=== PATIENT | male | born 1955 | race Caucasian/White ===

== ENCOUNTER 2017-08-05 09:33 | Outpatient (CLI) | payer OTHER ==
[2017-08-05 10:36] LABS: eGFR (African) > 60; eGFR (Non-African) > 60
== END 2017-08-05 09:34 ==
LOC: LAB 09:33
PROVIDERS: ATTEND Family Medicine
DX: Z00.00 Encounter for general adult medical examination without abnormal findings (principal); Z13.6 Encounter for screening for cardiovascular disorders; E03.9 Hypothyroidism, unspecified
CPT/HCPCS: 36415; 80053; 80061; 84443

== ENCOUNTER 2017-08-18 08:04 | Day surgery (SDC) | payer OTHER ==
[~2017-08-18 08:04] MED LIST: LACTATED RINGERS 1,000 ML IV.SOLN IV ONE; LIDOCAINE HCL/PF 2% 100 MG/5 ML VIAL IJ ONE; PROPOFOL 200 MG/20 ML VIAL IV ONE; SALINE FLUSH 10 ML DISP.SYRIN IVF ONE
--- NOTE | 2017-08-19 16:10 | GI Report ---
REFERRING PHYSICIAN: NATALIE Ambrose ENGINE REPAIRER PRODUCTION: Morales Garcia MD PROCEDURE MEDICATION: Propofol as per anesthesia. INDICATIONS: Patient is referred for a colonoscopy. It has been 10 years since screening. Denies changes in bowel habits. PROCEDURE PERFORMED: Colonoscopy. PROCEDURE: An Olympus video colonoscope was advanced into the rectum. He has diverticular disease in the sigmoid and descending colon, otherwise, normal mucosa all the way to the cecum. The appendiceal orifice and ileocecal valve were normal. On slow withdrawal, the cecum, ascending colon, and transverse colon with no obvious intraluminal lesions noted. The descending colon and sigmoid colon with scattered diverticula. Retroflexion of the rectum was normal. Patient tolerated the procedure well. FINDINGS: Diverticular disease at sigmoid colon and descending colon, otherwise, normal colonoscopy. RECOMMENDATION: 1. A high-fiber diet. 2. Consider re-looking at his colon in 10 years, sooner if clinically indicated. cc: NATALIE Ambrose [facility]
== END 2017-08-18 11:00 ==
LOC: OPSURG 08:04
PROVIDERS: ATTEND Internal Medicine Gastroenterology
DX: Z12.11 Encounter for screening for malignant neoplasm of colon (principal); K57.30 Diverticulosis of large intestine without perforation or abscess without bleeding
CPT/HCPCS: 45378; J2001; J2704; J7120; S1016

== ENCOUNTER 2018-08-20 15:40 | Outpatient (CLI) | payer BC | END 2018-08-20 15:43 | LOC: LAB 15:40 | PROVIDERS: ATTEND Family Medicine | DX: E03.9 Hypothyroidism, unspecified (principal) | CPT/HCPCS: 36415; 84443 ==